=== PATIENT | female | born 1970 | race Caucasian/White ===

== ENCOUNTER 2025-04-27 11:13 | Day surgery (SDC) | payer BC, SELFPAY ==
[2025-04-27] VITALS (12 sets, daily range): BP systolic 107–141; BP diastolic 66–92; PULSE 64–92; RESP 14–16; TEMP 36.2–37; O2SAT 95–100; BMI 24.7
[2025-04-27] MEDS: LACTATED RINGERS 1000 ML 1,000 ML 100 ML IV (11:35)
[2025-04-27] MEDS: SODIUM CHLORIDE 0.9 % (FLUSH) 10 ML SYRINGE IVF (11:55)
[2025-04-27] MEDS: OXYMETAZOLINE 0.05% NASAL SPRAY 2 SPRAY NOSTRIL-B (12:01)
[2025-04-27] MEDS: MUPIROCIN 1 GM PACKET 1 APPLIC TOPICAL (12:47)
[2025-04-27] MEDS: COCAINE HCL 4 % 4 ML SOLUTION NOSTRIL-B (12:47)
[2025-04-27] MEDS: BUPIVACAINE 0.5%/EPINEPHRINE 0.9 MG (30.9 ML) INJECTION (12:50)
--- NOTE | 2025-04-27 12:54 | W.PM.ENTPROC ---
Procedure Note Date of procedure: 04/27/25 Procedure: Preoperative diagnosis nasal obstruction, bilateral inferior turbinate hypertrophy Postoperative diagnosis same Procedure submucous partial resection inferior turbinates bilateral Under general trach anesthesia patient was prepped draped usual fashion nose decongested and injected. A stab incision was made in the anterior of the right inferior turbinate a tunnel created with a [place] dissector. The meli bone was outfractured a very conservative anterior submucous resection performed. The Coblation was used for hemostasis and also to cauterize intramurally along the inferior 10%. This was repeated on the left side in identical fashion. Both middle turbinates were crushed with the [place] forceps. Merocel packing soaked in Bactroban was placed in the middle meatus on each side. The patient procedure well was taken recovery in satisfactory condition. Blood loss was 10 mL. Surgeon: Enrique Morgan MD
--- NOTE | 2025-04-27 13:02 | P.ANES_ITS ---
Anesthesia Charges Start Date/Time Anesthesia Start Date: 04/27/25 Anesthesia Start Time: 12:32 Stop Date/Time Anesthesia Stop Date: 04/27/25 Anesthesia Stop Time: 13:02 Coding CPT Codes CPT Codes: ANESTH NOSE/SINUS SURGERY - 34208 ([id number]) P2 - PATIENT W/MILD SYST DISEASE, QK - SENIOR BI DEVELOPER 2-4 CNCRNT ANES PROC, QX - NEWSPAPER DELIVERY DRIVER SVC W/ MD MED DIRECTION
--- NOTE | 2025-04-27 13:02 | W.ANESCHARGE ---
Anesthesia Charges Start Date/Time Anesthesia Start Date: 04/27/25 Anesthesia Start Time: 12:32 Stop Date/Time Anesthesia Stop Date: 04/27/25 Anesthesia Stop Time: 13:02 Coding CPT Codes CPT Codes: ANESTH NOSE/SINUS SURGERY - 55089 ([id number]) P2 - PATIENT W/MILD SYST DISEASE, QK - CLIENT PROJECT COORDINATOR 2-4 CNCRNT ANES PROC, QX - MUNICIPAL CLERK SVC W/ MD MED DIRECTION
--- NOTE | 2025-04-27 13:35 | P.ANES_ITS ---
Anesthesia Charges Start Date/Time Anesthesia Start Date: 04/27/25 Anesthesia Start Time: 12:32 Stop Date/Time Anesthesia Stop Date: 04/27/25 Anesthesia Stop Time: 13:02 Coding CPT Codes CPT Codes: ANESTH NOSE/SINUS SURGERY - 71621 ([id number]) QK - DEPARTMENTAL SECRETARY 2-4 CNCRNT ANES PROC, QX - CLINICAL ORTHOPTIST SVC W/ MD MED DIRECTION, P2 - PATIENT W/MILD SYST DISEASE
--- NOTE | 2025-04-27 13:35 | W.ANESCHARGE ---
Anesthesia Charges Start Date/Time Anesthesia Start Date: 04/27/25 Anesthesia Start Time: 12:32 Stop Date/Time Anesthesia Stop Date: 04/27/25 Anesthesia Stop Time: 13:02 Coding CPT Codes CPT Codes: ANESTH NOSE/SINUS SURGERY - 52393 ([id number]) QK - MILL ATTENDANT 2-4 CNCRNT ANES PROC, QX - PRINTER TECHNICIAN SVC W/ MD MED DIRECTION, P2 - PATIENT W/MILD SYST DISEASE
== END 2025-04-27 14:42 | disposition home or self-care (01) ==
LOC: OR 11:14
PROVIDERS: PCP Family Medicine; Visit Provider Otolaryngology
PROC: (CPT 30520; principal; 2025-04-27 13:00)
DX: J34.3 Hypertrophy of nasal turbinates (principal); J34.89 Other specified disorders of nose and nasal sinuses
CPT/HCPCS: 30140; 00160; A9270; J0330; J1100; J2405; J2704; J3010; J7120